=== PATIENT | female | born 1965 | race Caucasian/White ===

== ENCOUNTER → 2020-04-05 | Outpatient (CLI) | payer OTHER | LOC: MC.RAD 14:52 | DX: Z12.31 Encounter for screening mammogram for malignant neoplasm of breast (principal); N63.20 Unspecified lump in the left breast, unspecified quadrant ==

== ENCOUNTER → 2020-04-15 | Outpatient (CLI) | payer OTHER | LOC: MC.RAD 07:45 | DX: N63.20 Unspecified lump in the left breast, unspecified quadrant (principal) ==

== ENCOUNTER → 2020-05-04 | Outpatient (CLI) | payer OTHER | LOC: MC.RAD 04-20 13:00 | DX: N63.20 Unspecified lump in the left breast, unspecified quadrant (principal) ==